=== PATIENT | female | born 2000 | race African-American/Black ===

== ENCOUNTER 2020-03-17 14:05 | Outpatient (REF) | payer OTHER, SELFPAY ==
[2020-03-17 16:26] LABS: MANUAL DIFF FLAG NO
[2020-03-17 16:31] LABS: Basophils Percent Auto 0.3 % (0-2); Eosinophils Percent Auto 0.5 % (0-4); Hematocrit 35.5 % (37-47); Hemoglobin 11.3 g/dl (12.0-16.0); Imm Gran Abs Auto 0.02 X10*3/uL (0.00-0.03); Imm Gran Pct Auto 0.3 % (0.0-0.4); Lymphocytes Percent Auto 31.2 % (20-40); Mean Corpuscular HGB Conc 31.8 g/dl (31.0-35.0); Mean Corpuscular Hemoglobin 29.7 pg (27.0-33.0); Mean Corpuscular Volume 93.2 fL (80-98); Mean Platelet Volume 9.7 fL (9.4-12.3); Monocytes Absolute Auto 0.3 X10*3/uL (0.1-1.2); Neutrophils Absolute Auto 4.1 X10*3/uL (2.0-8.3); Neutrophils Percent Auto 62.7 % (45-73); Platelet Count 292 X10*3/uL (160-400); Red Blood Count 3.81 X10*6/uL (4.20-5.50); Red Cell Distribution Width 12.2 % (11.0-16.0); White Blood Count 6.5 X10*3/uL (4.8-10.8)
[2020-03-17 17:02] LABS: Alanine Aminotransferase 10 U/L (0-31); Anion Gap 9 (12-20); Aspartate Amino Transferase 16 U/L (5-31); Blood Urea Nitrogen 11 mg/dL (9-16); Calcium 9.5 mg/dL (8.4-10.2); Carbon Dioxide 27 mmol/L (22-29); Chloride 107 mmol/L (96-108); Cholesterol 134 mg/dL; Estimated Glomerular Filt Rate > 60; Glucose Fasting 83 mg/dL (60-99); HDL Cholesterol 49 mg/dL; Iron 45 mcg/dL (30-160); LDL Cholesterol Calculated 79 mg/dl; Percent Iron Saturation 15 % (15-50); Sodium 139 mmol/L (135-145); Total Iron Binding Capacity 303 mcg/dL (228-428); Triglycerides 32 mg/dL; Unsaturated Iron Binding 258 ug/dL
[2020-03-18 04:11] LABS: HBS Num1 0.16 mIU/mL (0-7.99); HBc Num1 0.09 S/CO (0.00-0.79); HIV AB/AG Nonreactive (Nonreactive); HIV Num 1 0.07 S/CO (0.00-0.99); Hepatitis B Core Antibody Nonreactive (Nonreactive); Hepatitis B Surface Antigen Negative (Negative); ~HepC Num1 0.13 S/CO (0.00-0.79); ~Hepatitis B Surface Antibody NONREACTIVE (Nonreactive); ~Hepatitis C Antibody Nonreactive (Nonreactive)
[2020-03-19 14:11] LABS: C. trachomatis RNA TMA DETECTED (NOT DETECTED); N. gonorrhoeae RNA TMA NOT DETECTED (NOT DETECTED)
== END 2020-03-17 14:06 | disposition home or self-care (01) ==
LOC: HO.HMGCLDS 14:05
PROVIDERS: PCP Internal Medicine; Visit Provider Internal Medicine
DX: Z00.01 Encounter for general adult medical examination with abnormal findings (principal); D50.9 Iron deficiency anemia, unspecified; I10 Essential (primary) hypertension; Z11.3 Encounter for screening for infections with a predominantly sexual mode of transmission; Z11.4 Encounter for screening for human immunodeficiency virus [HIV]
CPT/HCPCS: 36415; 80048; 80061; 83540; 84450; 84460; 85025; 86704; 86706; 86803; 87340; 87389; 87491; 87591